=== PATIENT | female | born 2000 | race Caucasian/White ===

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

== ENCOUNTER 2021-07-17 21:16 | Emergency (ER) | payer MEDICAID ==
[2021-07-17 21:31] VITALS: BP 110/74
[2021-07-17] MEDS ORDERED: KETOROLAC 30 MG/ML VIAL IM STA (21:56)
[2021-07-17] MEDS ORDERED: DEXAMETHASONE 10 MG/ML VIAL IM STA (21:56)
--- NOTE | 2021-07-17 21:59 | ED Physician Documentation ---
History of Present Illness - Stated complaint Stated Complaint: R HAND PX - Chief complaint Chief Complaint: Ext Problem - History obtained from History obtained from: Patient, Family (mother) - Additonal information Additional information: 21-year-old girl with past medical history of mitral valve prolapse, no other medical problems and not on medications, presents with right wrist and hand pain for the past 10 days, progressively worsening, gradual in onset, constant, worst in the lateral wrist and carpal tunnel area. Patient was seen in urgent care 07/14 and prescribed Mobic and a splint. She has a physical job at a [employer] and has not been doing light duty. She feels that her hand pain has gotten worse with physical labor. denies trauma. R hand dominant Review of Systems Musculoskeletal: reports: Extremity pain PD PAST MEDICAL HISTORY - Past Medical History Cardiovascular: Other Respiratory: None Neuro: None - Past Surgical History Past Surgical History: No - Present Medications Home Medications: Ambulatory Orders Medication Instructions Recorded Confirmed Oxycodone HCl/Acetaminophen 1 - 2 each PO Q6H PRN #10 tablet 06/15/19 [Percocet 5-325 mg Tablet] - Allergies Allergies/Adverse Reactions: Allergies Allergy/AdvReac Type Severity Reaction Status Date / Time No Known Drug Allergies Allergy Verified 06/15/19 12:20 - Social History Does the pt smoke?: No Smoking Status: Never smoker Does the pt drink ETOH?: No Does the pt have substance abuse?: No - Immunizations Immunizations are current?: Yes - POLST Patient has POLST: No PD ED PE NORMAL - Vitals Vital signs reviewed: Yes - General General: Alert and oriented X 3, No acute distress, Well developed/nourished - HEENT HEENT: Atraumatic, PERRL, EOMI - Neck Neck: Supple, no meningeal sign - Derm Derm: Normal color, Warm and dry - Extremities Extremities: No deformity, Other (R wrist discomfort with ROM. sensation and movement intact. normal cap refill. normal radial pulse. +tinel sign) - Neuro Neuro: No motor deficit, No sensory deficit - Psych Psych: Normal mood, Normal affect Results - Vitals Vitals: Vital Signs - 24 hr 07/17/21 21:24 Temperature 37.2 C Heart Rate 98 Respiratory 15 Rate Blood Pressure 110/74 O2 Saturation 100 Oxygen O2 Source Room air PD MEDICAL DECISION MAKING - ED course ED course: 21-year-old woman presents with right wrist pain for the past 10 days, progressively worsening and worse with physical exertion. Steroid and NSAID provided and orthopedics referral provided. Return precautions given. Departure - Departure Clinical Impression: Wrist pain Condition: Good Instructions: ED RICE Follow-Up: PRADEEP HAWK [Physician No Access] - Comments: You are seen in the emergency department for right wrist pain. You were given Decadron 10 mg, a strong steroid. You were also given Toradol 30 mg, a nonsteroidal anti-inflammatory drug. Do not take Mobic for 6 hours after having Toradol. Return to the emergency department if you have any new or worsening symptoms or other concerns. Please follow-up with hand orthopedics if you do not have improvement in a week or 2. Forms: Activity restrictions
--- NOTE | 2021-07-17 22:20 | XRAY Report ---
PROCEDURE: Wrist 3 View RT INDICATIONS: wrist and hand pain X 10 days, atraumatic TECHNIQUE: 3 views of the wrist were acquired. COMPARISON: None FINDINGS: Bones: No fractures or dislocations. No suspicious bony lesions. Soft tissues: No suspicious soft tissue calcifications. IMPRESSION: No osseous lesion. If there are persistent symptoms or continued clinical concern for pathology, then repeat plain film radiographs (7-10 days) or advanced imaging (CT, MR, bone scan) should be consider ed for further evaluation. Reviewed by: Marcie Chavez MD, PhD on 07/17/2021 10:19 PM PST Approved by: Marcie Chavez MD, PhD on 07/17/2021 10:19 PM [facility] Station ID: [id number]
== END 2021-07-17 22:25 | disposition home or self-care (01) ==
LOC: ED 21:16
DX: M25.531 Pain in right wrist (principal); M79.641 Pain in right hand
CPT/HCPCS: 96372; 99281; 99283

== ENCOUNTER 2024-01-28 01:16 | Emergency (ER) | payer BC, MEDICAID ==
[2024-01-28] MEDS: SODIUM CHLORIDE 0.9% 2,000 ML IV STA (04:48)
[2024-01-28] MEDS: METOCLOPRAMIDE 10 MG/2 ML VIAL IVP STA (04:49)
[2024-01-28 05:27] LABS: BASOPHILS % (AUTO) 0.5 %; EOSINOPHILS # (AUTO) 0.1 10^3/uL (0.0-0.7); EOSINOPHILS % (AUTO) 1.1 %; HCT - HEMATOCRIT 33.2 % (37.0-47.0); HGB - HEMOGLOBIN 11.1 g/dL (12.0-16.0); LYMPHOCYTES # (AUTO) 1.7 10^3/uL (1.5-3.5); LYMPHOCYTES % (AUTO) 25.8 %; MEAN CORPUSCULAR HEMOGLOBIN 29.4 pg (27.0-31.0); MEAN CORPUSCULAR HGB CONC 33.4 g/dL (32.0-36.0); MEAN CORPUSCULAR VOLUME 87.8 fL (81.0-99.0); MEAN PLATELET VOLUME 10.7 fL (7.9-10.8); MONOCYTES # (AUTO) 0.6 10^3/uL (0.0-1.0); MONOCYTES % (AUTO) 8.5 %; NEUTROPHILS # (AUTO) 4.2 10^3/uL (1.5-6.6); NEUTROPHILS % (AUTO) 63.9 %; PLT - PLATELET COUNT 188 10^3/uL (130-450); RED BLOOD COUNT 3.78 10^6/uL (4.20-5.40); RED CELL DISTRIBUTION WIDTH 12.9 % (12.0-15.0); WHITE BLOOD COUNT 6.6 x10^3/uL (4.8-10.8)
[2024-01-28 05:45] LABS: ALBUMIN 3.7 g/dL (3.2-5.5); ALBUMIN/GLOBULIN RATIO 1.5 (1.0-2.2); ALKALINE PHOSPHATASE 34 IU/L (42-121); ALT ALANINE AMINOTRANSFERASE 18 IU/L (10-60); AST ASPARTATE AMINOTRANSFERASE 20 IU/L (10-42); BILIRUBIN,TOTAL 1.3 mg/dL (0.2-1.0); BUN - BLOOD UREA NITROGEN 10 mg/dL (6-20); CALCIUM 8.6 mg/dL (8.5-10.3); CARBON DIOXIDE - CO2 22 mmol/L (21-32); CHLORIDE 106 mmol/L (101-111); CREATININE 0.5 mg/dL (0.6-1.3); GFR - MDRD 154 (>89); GLUCOSE 79 mg/dL (74-104); POTASSIUM 3.2 mmol/L (3.5-4.5); SODIUM 138 mmol/L (135-145); TOTAL PROTEIN 6.2 g/dL (6.4-8.9)
[2024-01-28 05:52] LABS: LIPASE < 10 U/L (11-82)
--- NOTE | 2024-01-28 06:03 | ED Physician Documentation ---
History of Present Illness - Stated complaint Stated Complaint: VOMIT/NOT ABLE TO EAT/DRINK - Chief complaint Chief Complaint: Abd Pain - Additonal information Additional information: 23-year-old female G3, P0 presents with nausea vomiting. Endorsed for being approximately 10 weeks . Severe nausea vomiting for the last several days. Has not been tolerant of p.o. intake. Denies fever, diarrhea, abdominal pain, vaginal discharge, vaginal bleeding. Review of Systems Constitutional: denies: Fever Eyes: denies: Loss of vision Ears: denies: Loss of hearing Nose: denies: Rhinorrhea / runny nose Throat: denies: Dental pain / toothache Cardiac: denies: Chest pain / pressure Respiratory: denies: Dyspnea GI: reports: Nausea, Vomiting. denies: Abdominal Pain : denies: Dysuria, Vaginal bleeding Skin: denies: Rash Musculoskeletal: denies: Neck pain Neurologic: denies: Generalized weakness PD PAST MEDICAL HISTORY - Past Medical History Cardiovascular: Other Respiratory: None Neuro: None - Past Surgical History Past Surgical History: No - Present Medications Home Medications: Ambulatory Orders Medication Instructions Recorded Confirmed Doxylamine/Pyridoxine HCl 1 each PO DAILY #30 tab 01/28/24 [Jordyns Dr 10-10 mg Tablet] Metoclopramide [Reglan] 10 mg PO Q6H PRN 01/28/24 01/28/24 Ondansetron Odt [Zofran] 4 mg TL Q6H PRN #10 tablet 01/28/24 - Allergies Allergies/Adverse Reactions: Allergies Allergy/AdvReac Type Severity Reaction Status Date / Time No Known Drug Allergies Allergy Verified 01/28/24 01:49 - Social History Does the pt smoke?: No Smoking Status: Never smoker Does the pt drink ETOH?: No Does the pt have substance abuse?: No - Immunizations Immunizations are current?: Yes - POLST Patient has POLST: No PD ED PE NORMAL - Vitals Vital signs reviewed: Yes - General General: Alert and oriented X 3 - HEENT HEENT: Atraumatic, PERRL, EOMI, Ears normal, Moist mucous membranes, Pharynx liane ign - Neck Neck: Supple, no meningeal sign - Cardiac Cardiac: RRR - Respiratory Respiratory: No respiratory distress - Abdomen Abdomen: Normal bowel sounds, Soft, Non tender, Non distended Results - Vitals Vitals: Vital Signs - 24 hr 01/28/24 01/28/24 06:00 08:00 Heart Rate 84 86 Respiratory 18 20 Rate Blood Pressure 99/66 137/95 H O2 Saturation 100 98 Oxygen O2 Source Room air - Labs Labs: Laboratory Tests 01/28/24 01/28/24 05:20 05:20 WBC 6.6 RBC 3.78 L Hgb 11.1 L Hct 33.2 L MCV 87.8 MCH 29.4 MCHC 33.4 RDW 12.9 Plt Count 188 MPV 10.7 Neut # (Auto) 4.2 Lymph # (Auto) 1.7 [place] # (Auto) 0.6 Eos # (Auto) 0.1 Baso # (Auto) 0.0 Absolute Nucleated RBC 0.00 Nucleated RBC % 0.0 Sodium 138 Potassium 3.2 L Chloride 106 Carbon Dioxide 22 Anion Gap 10.0 BUN 10 Creatinine 0.5 L Estimated GFR (MDRD) 154 Glucose 79 Calcium 8.6 Total Bilirubin 1.3 H AST 20 ALT 18 Alkaline Phosphatase 34 L Total Protein 6.2 L Albumin 3.7 Globulin 2.5 Albumin/Globulin Ratio 1.5 Lipase < 10 L PD Medical Decision Making - ED course ED course: Patient G3, P0 presents with nausea vomiting and early first trimester . Afebrile, he medically stable. Abdominal exam benign. No concern for acute appendicitis or other acute intra-abdominal pathology. Patient given dose of Reglan, IV hydration. Initially did well with p.o. fluids however began to develop some increasing nausea and received second dose ondansetron. Will be signing out to the oncoming physician, please see their documentation for further detail. Departure - Departure Disposition: 01 Home, Self Care Clinical Impression: Vomiting affecting Instructions: ED Preg Morning Sickness Prescriptions: Doxylamine/Pyridoxine HCl [Dicelissagis Dr 10-10 mg Tablet] 1 each PO DAILY #30 tab Ondansetron Odt [Zofran] 4 mg TL Q6H PRN #10 tablet PRN Reason: Nausea / Vomiting Comments: Your prescriptions have been electronically transmitted to the [facility] pharmacy in [place]. Please take another dose of nausea medicine when you get home and make sure that you stay on top of the nausea by taking the medication on schedule during waking hours. You should initially try just small amounts of clear liquids at a time, as we have discussed. If you are able to get through the day without vomiting, you may try some simple starches like saltine crackers or Ramen noodles, if you feel ready to eat. Please make the next available appointment with your OB specialist and if you find that you are unable to hold anything down again for hours on end, please return to the emergency department. Forms: PCP List Discharge Date/Time: 01/28/24 08:27
[2024-01-28] MEDS: ONDANSETRON 4 MG/2 ML VIAL IVP STA (06:51)
--- NOTE | 2024-01-28 08:16 | ED Physician Documentation ---
ED Addendum - Addendum Addendum: 01/28/24 08:14 The patient was signed out to me at change of shift, pending symptomatic relief after presenting with hyperemesis gravidarum. The patient had initially gotten some IV Reglan which did not seem to help and had then been given a dose of Zofran. She was also given a liter of IV fluid. The patient reported feeling quite a bit better after the Zofran, though she did still have a mild sense of nausea. She felt ready to go home. I have advised her to give her stomach a rest for a few hours and then try to take very small amounts of clear liquids at a time, advancing the frequency and volume as tolerated. We have discussed a dietary plan if she is able to get through the day without vomiting. We have also discussed being very proactive about taking nausea medicine at home to keep the nausea from getting out of control. The patient is currently taking Reglan, but states it is not working all that well in part because she cannot hold it down for very long when she is nauseated. I have prescribed oral dissolving Zofran for her. She has an appointment coming up with her OB on February 11 and I have encouraged her to call and see if she can get this moved earlier if she continues to have problems. We have discussed the usual indications for return to the emergency department. Final impression: See original note Disposition: Home in stable and improved condition.
[2024-01-28 08:28] VITALS: BP 137/95; O2SAT 98
== END 2024-01-28 08:27 | disposition home or self-care (01) ==
LOC: ED 01:16
DX: O21.0 Mild hyperemesis gravidarum (principal); Z3A.10 10 weeks gestation of pregnancy
CPT/HCPCS: 36415; 80053; 83690; 85025; 96361; 96374; 96375; 99283; 99284; J2765